=== PATIENT | male | born 1985 ===

== ENCOUNTER 2016-10-04 11:41 | Emergency (ER) | payer OTHER ==
[2016-10-04 12:06] VITALS: BMI 31.6
[2016-10-04] MEDS ORDERED: TDAP Vaccine 0.5 mL Syr IM ONE (12:17)
--- NOTE | 2016-10-04 12:21 | ED PDOC ---
Arrival/HPI - General Chief Complaint: Abnormal Skin Integrity Time Seen by Provider: 10/04/16 12:16 Historian: Patient - History of Present Illness Narrative History of Present Illness (Text): 10/04/16 12:17 30 y/o male, no pmh, nkda, last tetanus doesn't remember, c/o rt. hand thumb laceration by the glass about 2 hours ago. Pt. stated that he was washing the dish, dish broked and sustained the laceration, use alcohol to clean the wound and irrigated with the water at home, no numbness or tingling, no difficulty bending or extending the thumb, no dizziness, no headache or night sweat, no other medical or psychological complaints. Past Medical History - Provider Review Nursing Documentation Reviewed: Yes - Psychiatric Hx Substance Use: No - Anesthesia Hx Anesthesia: No Family/Social History - Physician Review Nursing Documentation Reviewed: Yes Family/Social History: Unknown Family HX Smoking Status: Never Smoked Hx Alcohol Use: No Hx Substance Use: No Allergies/Home Meds Allergies/Adverse Reactions: Allergies No Known Allergies Allergy (Verified 10/04/16 12:06) Review of Systems - Physician Review All systems were reviewed & negative as marked: Yes - Review of Systems Constitutional: absent: Fatigue, Fevers Eyes: absent: Vision Changes ENT: absent: Hearing Changes Cardiovascular: absent: Chest Pain Gastrointestinal: absent: Abdominal Pain, Diarrhea, Nausea, Vomiting Musculoskeletal: absent: Arthralgias, Back Pain, Neck Pain, Joint Swelling, Myalgias Skin: Laceration. absent: Rash, Pruritis, Skin Lesions, Abscess, Ulcer, Cellulitis Neurological: absent: Headache, Dizziness, Focal Weakness, Gait Changes, Speech Changes, Facial Droop, Disequilibrium, Seizure, Other Physical Exam Vital Signs Reviewed: Yes Vital Signs Temp Pulse Resp BP Pulse Ox 10/04/16 12:08 99.0 F 99 H 18 130/88 96 Temperature: Afebrile Blood Pressure: Normal Pulse: Regular Respiratory Rate: Normal Appearance: Positive for: Well-Appearing, Non-Toxic, Comfortable Pain Distress: Moderate Mental Status: Positive for: Alert and Oriented X 3 - Systems Exam Head: Present: Atraumatic, Normocephalic Pupils: Present: PERRL Extroacular Muscles: Present: EOMI Conjunctiva: Present: Normal Mouth: Present: Moist Mucous Membranes Neck: Present: Normal Range of Motion Respiratory/Chest: Present: Clear to Auscultation, Good Air Exchange. No: Respiratory Distress, Accessory Muscle Use Cardiovascular: Present: Regular Rate and Rhythm, Normal S1, S2. No: Murmurs Abdomen: Present: Normal Bowel Sounds. No: Tenderness, Distention, Peritoneal Signs Back: Present: Normal Inspection Upper Extremity: Present: Normal Inspection, Other (Rt. hand thumb: visible u- shaped laceration approx. 4cm in total with mild oozing skin flap on the dorsum proximal phalanx region from superficial to fascia layer laceration, FROM without limitation with sensation intact, motor 5/5, +radial pulse, capillary refill< 2 seconds, normal 2pts. skin discrimination, neurovascular intact. ). No: Cyanosis, Edema Lower Extremity: Present: Normal Inspection. No: Edema Neurological: Present: GCS=15, CN II-XII Intact, Speech Normal Skin: Present: Warm, Dry, Normal Color. No: Rashes Psychiatric: Present: Alert, Oriented x 3, Normal Insight, Normal Concentration Medical Decision Making ED Course and Treatment: 10/04/16 12:21 -tetanus/keflex/motrin/tetanus as the patient stated that he doesn't remember his last tetanus now -xray 10/04/16 12:57 -xray show no acute findings. 10/04/16 13:28 -I explained to the patient that he will need hand specialist for follow up to ensure there is no nerve or tendon/ligament injury, pt. verbally expressed understanding. sensation intact, motor 5/5, wound irrigate with 1000cc of normal saline, clean withe betadine, 2cc of lidocaine to obtained digital block, 5-0 vicryl made 4 subq absorable sutures, 5-0 made 11 superficial sutures, hemostasis obtained, bacitracin and gauze dressing applied, sensation intact, motor 5/5, neurovascular intact, no complication during the procedure. Discharge home with keflex, motrin, bacitracin ointment, keep the dressing dry and clean for 24 hours, clean with soap and water twice daily, avoid using the thumb, sutures need to be removed by day 12, leave the dressing open at night after day 3, follow up with your own pmd and hand specialist within 2 days, return to the ER for any new or worsening signs or symptoms. - RAD Interpretation Radiology Orders: 10/04/16 12:17 HAND RIGHT 3 VIEWS [RAD] Stat PROCEDURE: Right Hand Radiographs. HISTORY: rt. hand thumb laceration COMPARISON: None. FINDINGS: BONES: There is a chronic appearing fracture of the tip of the 3rd distal phalanx. The thumb is unremarkable JOINTS: Normal. No osteoarthritic changes. SOFT TISSUES: Normal. OTHER FINDINGS: None. 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 - Medication Orders Current Medication Orders: Discontinued Medications Cephalexin Monohydrate (Keflex) 500 mg PO STAT STA PRN Reason: Protocol Stop: 10/04/16 12:18 Last Admin: 10/04/16 12:26 Dose: 500 MG Ibuprofen (Motrin Tab) 800 mg PO STAT STA Stop: 10/04/16 12:18 Last Admin: 10/04/16 12:26 Dose: 800 MG MAR Pain/Vitals Document 10/04/16 12:26 ALA (Rec: 10/04/16 12:26 ALA [id number]) Presence of Pain Presence of Pain Yes Pain Scale Used Pain Scale Used Numeric Location Left, Right or Bilateral Right Pain Location Body Site Thumb Lidocaine HCl (Lidocaine 1% (20ml)) 2 ml IJ STAT STA Stop: 10/04/16 12:59 Tetanus/Reduced Diphtheria/Acell Pertussis (Boostrix Vaccine Inj) 0.5 ml IM .ONCE ONE Stop: 10/04/16 12:18 Last Admin: 10/04/16 12:26 Dose: 0.5 ML MAR Immunization Data Document 10/04/16 12:26 ALA (Rec: 10/04/16 12:26 ALA [id number]) Immunization Data Vaccine Lot Number [id number] - PA / 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 Disposition/Present on Arrival - Present on Arrival Any Indicators Present on Arrival: No History of DVT/PE: No History of Uncontrolled Diabetes: No Urinary Catheter: No History of Decub. Ulcer: No History Surgical Site Infection Following: None - Disposition Have Diagnosis and Disposition been Completed?: Yes Diagnosis: Hand laceration Disposition: HOME/ ROUTINE Disposition Time: 12:23 Patient Plan: Discharge Condition: GOOD Discharge Instructions (ExitCare): Care For Your Stitches (ED), Laceration (ED) Print Language: BRITISH Additional Instructions: Discharge home with keflex, motrin, bacitracin ointment, keep the dressing dry and clean for 24 hours, clean with soap and water twice daily, avoid using the thumb, sutures need to be removed by day 12, leave the dressing open at night after day 3, follow up with your own pmd and hand specialist within 2 days, return to the ER for any new or worsening signs or symptoms. Prescriptions: Bacitracin Ointment [Bacitracin] 1 appful TOP BID #15 g Cephalexin [Keflex] 500 mg PO QID #32 capsule Ibuprofen [Motrin] 600 mg PO QID PRN #24 tab PRN Reason: Other Referrals: PCP,NO [Primary Care Provider] - Follow up with primary Esteban Shaffer MD [Staff Provider] - [place] up [place] [facility] [place] - Follow up with primary Forms: WORK NOTE
--- NOTE | 2016-10-04 12:55 | RAD ---
PROCEDURE: Right Hand Radiographs. HISTORY: rt. hand thumb laceration COMPARISON: None. FINDINGS: BONES: There is a chronic appearing fracture of the tip of the 3rd distal phalanx. The thumb is unremarkable JOINTS: Normal. No osteoarthritic changes. SOFT TISSUES: Normal. OTHER FINDINGS: None. IMPRESSION: No acute findings
[2016-10-04] MEDS ORDERED: Lidocaine 1% Inj (20ml) IJ STA (12:58)
[2016-10-04 13:54] VITALS: BP 118/83; PULSE 85; RESP 16; TEMP 98.9; O2SAT 98
== END 2016-10-04 14:09 | disposition home or self-care (01) ==
LOC: ED 11:41
DX: S61.011A Laceration without foreign body of right thumb without damage to nail, initial encounter (principal); W25.XXXA Contact with sharp glass, initial encounter; Y93.G1 Activity, food preparation and clean up; Y92.89 Other specified places as the place of occurrence of the external cause; Z23 Encounter for immunization